=== PATIENT | male | born 1960 | race African-American/Black ===

== ENCOUNTER 2018-08-29 21:27 | Emergency (ER) | payer MEDICARE, MEDICAID ==
[~2018-08-29] VITALS: Ht 177.8 cm; Wt 81.0 kg
[2018-08-30] MEDS ORDERED: KETOROLAC 30MG/ML VIAL IV ONE (00:15)
[2018-08-30 00:43] LABS: BASOPHILS % 1.1 % (0.0-2.0); EOSINOPHILS % 0.7 % (0.0-5.0); LYMPHOCYTES % 28.8 % (20.0-50.0); MEAN CORPUSCULAR HEMOGLOBIN 31.6 pg (28.0-32.0); MEAN CORPUSCULAR VOLUME 90.8 fL (80.0-94.0); MEAN PLATELET VOLUME 8.8 fl (7.4-10.4); NEUTROPHILS % 57.4 % (40.0-76.0); PLATELET 176 x1000/uL (130-400); RED BLOOD CELL COUNT 4.74 mill/uL (4.7-6.1); RED CELL DISTRIBUTION WIDTH 15.8 % (11.6-14.6)
[2018-08-30 00:51] LABS: CHLORIDE 104 mEq/L (98-107)
[2018-08-30] MEDS ORDERED: IOHEXOL-300 100 ML BOTTLE ONE (03:17)
[2018-08-30 04:26] LABS: CLARITY URINE CLEAR (CLEAR); COLOR URINE YELLOW (YELLOW); KETONES URINE 1+ (NEGATIVE); LEUKOCYTE ESTERASE URINE NEGATIVE (NEGATIVE); NITRITE URINE NEGATIVE (NEGATIVE); OCCULT BLOOD URINE NEGATIVE (NEGATIVE); PH URINE 8.5 (4.5-8.0); PROTEIN URINE NEGATIVE (NEGATIVE); SPECIFIC GRAVITY URINE 1.031 (1.005-1.030); UROBILINOGEN URINE 0.2 E.U./dL (0.2-1.0)
[2018-08-30] MEDS ORDERED: MORPHINE SULFATE 4 MG/ML CPJ (NOT FOR IM USE) IV ONE (08:15)
[2018-08-30] MEDS ORDERED: HYDROCODONE/ACETAMINOPHEN 10/325MG TABLET PO ONE (08:45)
[2018-08-30 09:35] VITALS: BP 163/93
== END 2018-08-30 09:35 | disposition home or self-care (01) ==
LOC: ER 21:27
DX: M51.36 Other intervertebral disc degeneration, lumbar region (principal); M43.16 Spondylolisthesis, lumbar region; I10 Essential (primary) hypertension; R32 Unspecified urinary incontinence
CPT/HCPCS: 36415; 72158; 74177; 80048; 81003; 85025; 85651; 96374; 99284; J1885; Q9967; J2270

== ENCOUNTER 2021-09-15 11:08 | Emergency (ER) | payer MEDICARE, MEDICAID ==
[~2021-09-15] VITALS: Ht 172.7 cm; Wt 80.0 kg
[2021-09-15 11:13] VITALS: BP 167/100
[2021-09-15] MEDS ORDERED: IBUPROFEN 400MG TABLET PO ONE (11:30)
[2021-09-15] MEDS ORDERED: ACETAMINOPHEN 325MG TABLET PO ONE (11:30)
== END 2021-09-15 17:13 | disposition left against medical advice (07) ==
LOC: ER 11:08
DX: R05.9 Cough, unspecified (principal); R50.9 Fever, unspecified; F17.210 Nicotine dependence, cigarettes, uncomplicated; Z71.6 Tobacco abuse counseling
CPT/HCPCS: 99283; 99406